=== PATIENT | male | born 1950 | race Caucasian/White ===

== ENCOUNTER 2017-06-16 11:49 | Day surgery (SDC) | payer MEDICARE ==
[2017-06-16] MEDS ORDERED: LIDOCAINE 4% INJ 5 ML AMP NEB (12:30)
[2017-06-16] MEDS ORDERED: LIDOCAINE VISCOUS 2% SOLN 15ML UDC As Ordered (12:48)
== END 2017-06-16 13:40 | disposition home or self-care (01) ==
LOC: M OPP 11:49
DX: Z12.11 Encounter for screening for malignant neoplasm of colon (principal); Z86.010 Personal history of colon polyps; Z80.0 Family history of malignant neoplasm of digestive organs; D12.0 Benign neoplasm of cecum; D12.5 Benign neoplasm of sigmoid colon; K64.0 First degree hemorrhoids; K57.30 Diverticulosis of large intestine without perforation or abscess without bleeding; R12 Heartburn; K22.8 Other specified diseases of esophagus; K44.9 Diaphragmatic hernia without obstruction or gangrene; I10 Essential (primary) hypertension; E78.5 Hyperlipidemia, unspecified; K21.9 Gastro-esophageal reflux disease without esophagitis; K82.9 Disease of gallbladder, unspecified; Z86.79 Personal history of other diseases of the circulatory system; Z88.0 Allergy status to penicillin; Z79.82 Long term (current) use of aspirin; Z79.899 Other long term (current) drug therapy; Z80.1 Family history of malignant neoplasm of trachea, bronchus and lung; Z83.71 Family history of colonic polyps
CPT/HCPCS: 45380

== ENCOUNTER 2017-11-16 09:57 | Emergency (ER) | payer MEDICARE ==
[2017-11-16 10:36] LABS: BASO % 0.4 % (0.0-1.0); EOS # 0.1 10^3/uL (0.0-0.50); EOS % 0.9 % (0.0-3.0); HEMATOCRIT 41.7 % (42.0-52.0); HEMOGLOBIN 14.5 g/dl (13.5-17.5); IMMATURE GRANULOCYTE % 0.1 % (0-3.0); LYMPH # 2.1 10^3/uL (1.5-4.5); LYMPH % 30.5 % (24.0-44.0); MEAN CORPUSCULAR HEMOGLOBIN 31.3 pg (27.0-33.0); MEAN CORPUSCULAR HGB CONC 34.8 g/dl (32.0-36.5); MEAN CORPUSCULAR VOLUME 90.1 fl (80.0-96.0); MONO # 0.4 10^3/uL (0.0-0.8); NEUTROPHILS # 4.2 10^3/uL (1.8-7.7); NEUTROPHILS % 62.1 % (36.0-66.0); PLATELET COUNT, AUTOMATED 242 10^3/uL (150-450); RED BLOOD COUNT 4.63 10^6/uL (4.30-6.10); WHITE BLOOD COUNT 6.8 10^3/uL (4.0-10.0)
[2017-11-16 10:59] LABS: INR 0.95; PROTHROMBIN TIME 12.8 SECONDS (12.1-14.4)
[2017-11-16 11:15] LABS: ALBUMIN 3.8 GM/DL (3.2-5.2); ALKALINE PHOSPHATASE 116 U/L (45-117); ALT/SGPT 25 U/L (12-78); ANION GAP 9 MEQ/L (8-16); AST/SGOT 15 U/L (7-37); BILIRUBIN,DIRECT 0.1 MG/DL (0.0-0.2); BILIRUBIN,TOTAL 0.5 MG/DL (0.2-1.0); BLOOD UREA NITROGEN 22 MG/DL (7-18); CALCIUM LEVEL 8.8 MG/DL (8.8-10.2); CARBON DIOXIDE LEVEL 23 MEQ/L (21-32); CHLORIDE LEVEL 107 MEQ/L (98-107); CPK CREATINE PHOSPHOKINASE 195 U/L (39-308); CREATININE FOR GFR 0.93 MG/DL (0.70-1.30); FREE T4 1.02 NG/DL (0.76-1.46); GLOMERULAR FILTRATION RATE > 60.0 (>49); GLUCOSE, FASTING 137 MG/DL (70-100); LIPASE 110 U/L (73-393); MB/CK RELATIVE INDEX 0.87 (< OR =4); NT-PRO BNP 50 PG/ML (<125); POTASSIUM SERUM 3.9 MEQ/L (3.5-5.1); SODIUM LEVEL 139 MEQ/L (136-145); TOTAL PROTEIN 6.8 GM/DL (6.4-8.2); TROPONIN I < 0.02 NG/ML (< 0.10)
[2017-11-16 11:38] LABS: ALBUMIN/GLOBULIN RATIO 0.79 (1.00-1.93)
== END 2017-11-16 12:04 | disposition home or self-care (01) ==
LOC: M ED 09:57
DX: I49.9 Cardiac arrhythmia, unspecified (principal); I10 Essential (primary) hypertension; E78.5 Hyperlipidemia, unspecified; Z88.0 Allergy status to penicillin; Z88.1 Allergy status to other antibiotic agents; Z79.899 Other long term (current) drug therapy; Z79.82 Long term (current) use of aspirin
CPT/HCPCS: 71045

== ENCOUNTER → 2020-04-18 | Outpatient (CLI) | payer MEDICARE ==
[~2020-04-18] MED LIST: AMBI5TAB PO; ASPI81TA86 PO; ATEN25TA PO; ATOR1TAB19 PO; AVAP150T31 PO; CHLO125TA PO; DIOV80TA OR; HYDR25TA6 OR; IRBE150T7 PO
== END ==
LOC: M LABSMTC 13:59
PROVIDERS: ATTEND Family Medicine
DX: Z20.822 Contact with and (suspected) exposure to COVID-19 (principal)
CPT/HCPCS: C9803; U0003

== ENCOUNTER 2021-04-30 13:24 | Observation (INO) | payer MEDICARE ==
[2021-04-30] MEDS ORDERED: ONDANSETRON 4MG/2ML VIAL IV ONE (13:40)
[2021-04-30 14:07] LABS: BASO % 0.3 % (0.0-1.0); EOS % 0.2 % (0.0-3.0); HEMATOCRIT 44.2 % (42.0-52.0); HEMOGLOBIN 15.1 g/dl (13.5-17.5); LYMPH # 1.5 10^3/uL (1.5-5.0); LYMPH % 16.7 % (24.0-44.0); MEAN CORPUSCULAR HEMOGLOBIN 31.3 pg (27.0-33.0); MEAN CORPUSCULAR HGB CONC 34.2 g/dl (32.0-36.5); MEAN CORPUSCULAR VOLUME 91.5 fl (80.0-96.0); MONO # 0.4 10^3/uL (0.0-0.8); NEUTROPHILS # 6.9 10^3/uL (1.5-8.5); NEUTROPHILS % 78.3 % (36.0-66.0); PLATELET COUNT, AUTOMATED 218 10^3/uL (150-450); RED BLOOD COUNT 4.83 10^6/uL (4.30-6.10); WHITE BLOOD COUNT 8.8 10^3/uL (4.0-10.0)
[2021-04-30 14:46] LABS: BLOOD UREA NITROGEN 20 MG/DL (7-18); CALCIUM LEVEL 8.8 MG/DL (8.8-10.2); CARBON DIOXIDE LEVEL 21 MEQ/L (21-32); CHLORIDE LEVEL 106 MEQ/L (98-107); CREATININE FOR GFR 1.09 MG/DL (0.70-1.30); GLOMERULAR FILTRATION RATE > 60.0 (>49); GLUCOSE, FASTING 156 MG/DL (70-100); POTASSIUM SERUM 6.4 MEQ/L (3.5-5.1); SODIUM LEVEL 134 MEQ/L (136-145)
[2021-04-30] MEDS ORDERED: MECLIZINE 25 MG TABLET PO ONE (15:00)
[2021-04-30] MEDS ORDERED: diazePAM 10MG/2ML SYRINGE (J3360 PER 5MG) IV ONE ×2 (15:00→15:45)
[2021-04-30 17:47] LABS: BLOOD UREA NITROGEN 19 MG/DL (7-18); CALCIUM LEVEL 8.9 MG/DL (8.8-10.2); CARBON DIOXIDE LEVEL 26 MEQ/L (21-32); CHLORIDE LEVEL 107 MEQ/L (98-107); CREATININE FOR GFR 0.94 MG/DL (0.70-1.30); GLOMERULAR FILTRATION RATE > 60.0 (>49); GLUCOSE, FASTING 123 MG/DL (70-100); POTASSIUM SERUM 3.9 MEQ/L (3.5-5.1); SODIUM LEVEL 139 MEQ/L (136-145)
[2021-04-30] MEDS ORDERED: diazePAM 2 MG TAB PO ONE (17:50)
[2021-04-30] MEDS ORDERED: ACETAMINOPHEN TAB 650MG DOSE (2X325MG) PO PRN (18:35)
[2021-04-30 19:13] LABS: MAGNESIUM LEVEL 2.1 MG/DL (1.8-2.4)
[2021-04-30] MEDS ORDERED: diphenhydrAMINE 50MG/ML VIAL (J1200) IV ONE (19:25)
[2021-04-30] MEDS ORDERED: PROCHLORPERAZINE 10MG/2ML VIAL (J0780 PER 1) IV ONE (19:30)
[2021-04-30] MEDS ORDERED: **hydrALAZINE HCL** 25 MG TAB PO ONE (19:45)
[2021-04-30] MEDS ORDERED: DRAM50TA9 PO (21:14)
[2021-04-30] MEDS ORDERED: HOME MED LIST COMPLETE! XX SCH (21:15)
[2021-04-30 21:30] LABS: RSV AMPLIFICATION NEGATIVE (NEGATIVE)
[2021-04-30 23:00] VITALS: BP 129/67
[2021-05-01] VITALS (8 sets, daily range): BP systolic 105–150; BP diastolic 54–90
[2021-05-01] MEDS: MECLIZINE 25 MG TABLET PO PRN ×2 (01:41→09:04)
[2021-05-01 07:27] LABS: BLOOD UREA NITROGEN 18 MG/DL (7-18); CALCIUM LEVEL 8.6 MG/DL (8.8-10.2); CARBON DIOXIDE LEVEL 29 MEQ/L (21-32); CHLORIDE LEVEL 107 MEQ/L (98-107); CREATININE FOR GFR 0.89 MG/DL (0.70-1.30); GLOMERULAR FILTRATION RATE > 60.0 (>49); GLUCOSE, FASTING 89 MG/DL (70-100); POTASSIUM SERUM 3.4 MEQ/L (3.5-5.1); SODIUM LEVEL 142 MEQ/L (136-145)
[2021-05-01] MEDS: IRBESARTAN 150MG TAB PO SCH (11:04)
[2021-05-01] MEDS: predniSONE 20 MG TAB PO SCH (13:15)
[2021-05-01] MEDS: ACETAMINOPHEN TAB 650MG DOSE (2X325MG) PO PRN ×2 (13:25→19:24)
[2021-05-01] MEDS: MECLIZINE 25 MG TABLET PO SCH ×2 (13:27→17:37)
[2021-05-01] MEDS: ONDANSETRON 4MG/2ML VIAL IV PRN (19:24)
[2021-05-02] MEDS: MECLIZINE 25 MG TABLET PO SCH ×4 (00:59→18:37)
[2021-05-02 05:57] VITALS: BP 146/82
[2021-05-02] MEDS: ONDANSETRON 4MG/2ML VIAL IV PRN (06:28)
[2021-05-02] MEDS ORDERED: POTASSIUM CHLORIDE 10MEQ SR TABLET PO ONE (07:05)
[2021-05-02] MEDS ORDERED: FIORICET TAB PO ONE (08:50)
[2021-05-02] MEDS ORDERED: ASPIRIN 325 MG TAB PO ONE (08:50)
[2021-05-02] MEDS ORDERED: ONDANSETRON 4 MG ORAL DISINTEGRATING TAB PO PRN (09:05)
[2021-05-02] MEDS: predniSONE 20 MG TAB PO SCH (10:13)
[2021-05-02] MEDS: IRBESARTAN 150MG TAB PO SCH (11:26)
[2021-05-02 14:00] VITALS: BP 144/101
[2021-05-02] MEDS ORDERED: DOCUSATE SODIUM 100MG CAPSULE PO PRN (14:05)
[2021-05-02 16:08] LABS: Lyme Disease IgG/IgM Antibodie <0.91 ISR (0.00-0.90); Lyme Disease IgM Ab Quantitati <0.80 index (0.00-0.79)
[2021-05-02 16:08] LABS: MB/CK RELATIVE INDEX 0.68 (< OR =4)
[2021-05-02 16:09] LABS: CALCIUM LEVEL 9.2 MG/DL (8.8-10.2); CREATININE FOR GFR 1.28 MG/DL (0.70-1.30); GLOMERULAR FILTRATION RATE 59.3 (>49); MAGNESIUM LEVEL 2.2 MG/DL (1.8-2.4)
[2021-05-02 18:40] VITALS: BP 118/81
[2021-05-02 21:00] VITALS: BP 124/77
[2021-05-03] MEDS: MECLIZINE 25 MG TABLET PO SCH ×3 (00:40→11:25)
[2021-05-03 06:00] VITALS: BP 140/70
[2021-05-03 08:10] VITALS: BP 142/87
[2021-05-03] MEDS: predniSONE 20 MG TAB PO SCH (09:40)
[2021-05-03 09:42] VITALS: BP 139/79
[2021-05-03] MEDS: IRBESARTAN 150MG TAB PO SCH (09:42)
[2021-05-03] MEDS ORDERED: MECL-86 PO (09:46)
[2021-05-03] MEDS ORDERED: ONDA4TAB6 PO (09:46)
[2021-05-03] MEDS ORDERED: PRED10TA2 PO (09:46)
== END 2021-05-03 11:53 | disposition home or self-care (01) ==
LOC: EDBD 13:24 → EDSEX 13:24 → M ED 13:24 → M ED INP 13:25 → M MSPAV 23:12
PROVIDERS: ADMIT Internal Medicine; ATTEND Internal Medicine
DX: H81.23 Vestibular neuronitis, bilateral (principal); I10 Essential (primary) hypertension; E78.5 Hyperlipidemia, unspecified; G43.909 Migraine, unspecified, not intractable, without status migrainosus; I47.9 Paroxysmal tachycardia, unspecified; Z79.899 Other long term (current) drug therapy; Z79.52 Long term (current) use of systemic steroids; Z88.0 Allergy status to penicillin
CPT/HCPCS: 36415; 70450; 70551; 80048; 82550; 82553; 83735; 84484; 85025; 86617; 87631; 93005; 96374; 96375; 96376; 97112; 97161; 97530; 99285; G0378; J0780; J1200; J2405; J3360; J7512; Q0162

== ENCOUNTER 2021-10-20 01:18 | Emergency (ER) | payer MEDICARE ==
[~2021-10-20] VITALS: Ht 172.7 cm; Wt 96.5 kg
[~2021-10-20 01:18] MED LIST changes: +DRAM50TA9 PO; +MECL-86 PO; +ONDA4TAB6 PO; +PRED10TA2 PO
[2021-10-20] MEDS ORDERED: KETOROLAC 30 MG/ML 1ML VIAL IV ONE (02:35)
[2021-10-20 02:53] LABS: BASO # 0.1 10^3/uL (0.0-0.2); BASO % 0.7 % (0.0-1.0); EOS # 0.1 10^3/uL (0.0-0.5); HEMOGLOBIN 12.6 g/dl (13.5-17.5); LYMPH # 1.8 10^3/uL (1.5-5.0); LYMPH % 25.1 % (24.0-44.0); MEAN CORPUSCULAR HEMOGLOBIN 30.7 pg (27.0-33.0); MEAN CORPUSCULAR HGB CONC 33.2 g/dl (32.0-36.5); MEAN CORPUSCULAR VOLUME 92.7 fl (80.0-96.0); MONO # 0.6 10^3/uL (0.0-0.8); MONO % 7.5 % (2.0-8.0); NEUTROPHILS # 4.8 10^3/uL (1.5-8.5); NEUTROPHILS % 65.6 % (36.0-66.0); PLATELET COUNT, AUTOMATED 208 10^3/uL (150-450); WHITE BLOOD COUNT 7.3 10^3/uL (4.0-10.0)
[2021-10-20 03:11] LABS: ALT/SGPT 24 U/L (12-78); BILIRUBIN,DIRECT 0.1 MG/DL (0.0-0.2); BILIRUBIN,TOTAL 0.4 MG/DL (0.2-1.0); BLOOD UREA NITROGEN 31 MG/DL (7-18); CALCIUM LEVEL 8.6 MG/DL (8.8-10.2); CARBON DIOXIDE LEVEL 24 MEQ/L (21-32); CHLORIDE LEVEL 108 MEQ/L (98-107); CREATININE FOR GFR 1.18 MG/DL (0.70-1.30); GLOMERULAR FILTRATION RATE > 60.0 (>42); GLUCOSE, FASTING 131 MG/DL (70-100); LIPASE 85 U/L (73-393); POTASSIUM SERUM 4.2 MEQ/L (3.5-5.1); SODIUM LEVEL 137 MEQ/L (136-145); TOTAL PROTEIN 6.9 GM/DL (6.4-8.2)
[2021-10-20 04:14] LABS: SQUAMOUS EPITHELIAL CELL URINE SMALL AMOUNT /hpf (SMALL AMT); WBC, URINE 0-1 /hpf (0-3)
[2021-10-20 04:15] LABS: BACTERIA, URINE NONE SEEN; HYALINE CAST, URINE NONE SEEN /lpf (0-1)
[2021-10-20] MEDS ORDERED: MORPHINE 4 MG/ML 1ML VIAL/SYRINGE IV ONE (07:10)
[2021-10-20] MEDS ORDERED: OXYCODONE/APAP 5MG/325MG(HOME DOSE PACK) PO ONE (07:10)
[2021-10-20] MEDS ORDERED: PERC5TAB12 PO (07:12)
[2021-10-20] MEDS ORDERED: FLOM0.4C39 PO (07:12)
[2021-10-20 07:43] VITALS: BP 156/86
== END 2021-10-20 07:45 | disposition home or self-care (01) ==
LOC: M ED 01:18
DX: N21.1 Calculus in urethra (principal); N13.1 Hydronephrosis with ureteral stricture, not elsewhere classified; I10 Essential (primary) hypertension; I47.1 Supraventricular tachycardia; I25.10 Atherosclerotic heart disease of native coronary artery without angina pectoris; Z98.61 Coronary angioplasty status; H91.90 Unspecified hearing loss, unspecified ear; N40.0 Benign prostatic hyperplasia without lower urinary tract symptoms; Z79.899 Other long term (current) drug therapy; Z88.0 Allergy status to penicillin
CPT/HCPCS: 74176; 80048; 80076; 81000; 83690; 85025; 96374; 96375; 99284; J1885; J2270

== ENCOUNTER → 2021-10-23 | Outpatient (CLI) | payer MEDICARE ==
[~2021-10-23] MED LIST changes: +FLOM0.4C39 PO; +PERC5TAB12 PO
[2021-10-23 14:09] LABS: APPEARANCE, URINE MANUAL CLEAR (CLEAR); COLOR, URINE MANUAL YELLOW (YELLOW)
[2021-10-23 14:10] LABS: PH,URINE MAN 5.5 UNITS (5.0 - 7.0); SPECIFIC GRAVITY,URINE MANUAL 1.015 (1.002-1.035)
[2021-10-23 14:11] LABS: BILIRUBIN, URINE MANUAL NEGATIVE (NEGATIVE); BLOOD URINE MANUAL POSITIVE (NEGATIVE); GLUCOSE, URINE (UA) MANUAL NEGATIVE (NEGATIVE); KETONE, URINE MANUAL NEGATIVE (NEGATIVE); LEUKOCYTE ESTERASE, URINE MAN NEGATIVE (NEGATIVE); NITRITE, URINE MANUAL NEGATIVE (NEGATIVE); PROTEIN, URINE MANUAL NEGATIVE (NEGATIVE); UROBILINOGEN, URINE MANUAL NORMAL (NORMAL)
[2021-10-23 14:40] LABS: BACTERIA, URINE NONE SEEN; HYALINE CAST, URINE NONE SEEN /lpf (0-1); MUCUS, URINE SMALL AMOUNT (NEGATIVE); RBC, URINE 30-40 /hpf (0-3); SQUAMOUS EPITHELIAL CELL URINE SMALL AMOUNT /hpf (SMALL AMT)
== END ==
LOC: M PLAIMG 08:51
PROVIDERS: ATTEND Physician Assistant
DX: Z01.818 Encounter for other preprocedural examination (principal); N20.1 Calculus of ureter

== ENCOUNTER → 2021-11-04 | Outpatient (CLI) | payer MEDICARE | LOC: M RAD 13:00 | PROVIDERS: ATTEND Physician Assistant | DX: N20.0 Calculus of kidney (principal); N28.1 Cyst of kidney, acquired; N18.9 Chronic kidney disease, unspecified ==

== ENCOUNTER → 2021-11-30 | Outpatient (REF) | payer MEDICARE | LOC: M WUC 12:42 | PROVIDERS: ATTEND Physician Assistant | DX: U07.1 COVID-19 (principal); J06.9 Acute upper respiratory infection, unspecified ==

== ENCOUNTER → 2022-05-25 | Outpatient (CLI) | payer MEDICARE | LOC: M PLALAB 11:11 → M PLAIMG 11:11 | PROVIDERS: ATTEND Urology | DX: N20.0 Calculus of kidney (principal); R14.0 Abdominal distension (gaseous) ==

== ENCOUNTER 2022-11-23 07:13 | Day surgery (SDC) | payer MEDICARE ==
[~2022-11-23] VITALS: Ht 172.7 cm; Wt 95.2 kg
[~2022-11-23 07:13] MED LIST changes: +ALEV220T22 PO; +NS 1,000 ML IV ONE; +ZOLP10TA2 PO
[2022-11-23 08:25] VITALS: BP 161/91; TEMP 97.6; O2SAT 99
== END 2022-11-23 08:35 | disposition home or self-care (01) ==
LOC: M OPP 07:13
PROVIDERS: ATTEND Internal Medicine Gastroenterology
DX: Z86.010 Personal history of colon polyps (principal); K64.0 First degree hemorrhoids; Z79.811 Long term (current) use of aromatase inhibitors; Z79.83 Long term (current) use of bisphosphonates; Z79.899 Other long term (current) drug therapy; Z88.0 Allergy status to penicillin; Z88.1 Allergy status to other antibiotic agents

== ENCOUNTER → 2023-09-07 | Outpatient (CLI) | payer MEDICARE ==
[~2023-09-07] MED LIST changes: +IRBE150T27 PO; -IRBE150T7 PO; -NS 1,000 ML IV ONE; +ONDA-282 PO; -ONDA4TAB6 PO
== END ==
LOC: M PLAIMG 16:15
PROVIDERS: ATTEND Urology
DX: N20.0 Calculus of kidney (principal)

== ENCOUNTER → 2023-10-07 | Outpatient (CLI) | payer MEDICARE | LOC: M RAD 08:36 | PROVIDERS: ATTEND Urology | DX: N20.0 Calculus of kidney (principal); Z90.49 Acquired absence of other specified parts of digestive tract; J92.9 Pleural plaque without asbestos; N21.0 Calculus in bladder ==

== ENCOUNTER → 2023-11-04 | Outpatient (CLI) | payer MEDICARE ==
[2023-11-04 10:33] LABS: HEMATOCRIT 43.1 % (42.0-52.0); HEMOGLOBIN 14.9 g/dl (13.5-17.5); MEAN CORPUSCULAR HEMOGLOBIN 32.2 pg (27.0-33.0); MEAN CORPUSCULAR HGB CONC 34.6 g/dl (32.0-36.5); MEAN CORPUSCULAR VOLUME 93.1 fl (80.0-96.0); PLATELET COUNT, AUTOMATED 218 10^3/uL (150-450); RED BLOOD COUNT 4.63 10^6/uL (4.30-6.10); WHITE BLOOD COUNT 6.5 10^3/uL (4.0-10.0)
[2023-11-04 10:38] LABS: BLOOD UREA NITROGEN 18 MG/DL (9-23); CALCIUM LEVEL 9.2 MG/DL (8.3-10.6); CARBON DIOXIDE LEVEL 28 MMOL/L (20-31); CHLORIDE LEVEL 108 MMOL/L (98-107); CREATININE FOR GFR 0.87 MG/DL (0.70-1.30); GLOMERULAR FILTRATION RATE > 60.0 (>42); GLUCOSE, FASTING 97 MG/DL (74-106); POTASSIUM SERUM 4.6 MMOL/L (3.5-5.1); SODIUM LEVEL 140 MMOL/L (136-145)
== END ==
LOC: M PLAIMG 07:59
PROVIDERS: ATTEND Urology
DX: Z01.818 Encounter for other preprocedural examination (principal); N21.0 Calculus in bladder; N39.0 Urinary tract infection, site not specified

== ENCOUNTER → 2023-11-15 | Outpatient (REF) | payer MEDICARE | LOC: M SMT 15:08 | PROVIDERS: ATTEND Urology | DX: Z01.818 Encounter for other preprocedural examination (principal); N21.0 Calculus in bladder; N39.0 Urinary tract infection, site not specified ==

== ENCOUNTER 2023-11-24 07:21 | Day surgery (SDC) | payer MEDICARE ==
[~2023-11-24] VITALS: Ht 175.3 cm; Wt 93.6 kg
[2023-11-24] MEDS: LR 1,000 ML IV SCH (08:15)
[2023-11-24] MEDS ORDERED: LIDOCAINE 2% 100MG/5ML SDV (FOR ANES.) As Ordered ONE (08:21)
[2023-11-24] MEDS ORDERED: propofoL 200 MG/20 ML VIAL As Ordered ONE (08:21)
[2023-11-24] MEDS ORDERED: ONDANSETRON 4MG 2ML VIAL As Ordered ONE (08:22)
[2023-11-24] MEDS ORDERED: ceFAZolin SOD 2 GM in IV 1 EA IV ONE (09:00)
[2023-11-24] MEDS ORDERED: oxyCODONE 5MG TAB PO PRN (10:15)
[2023-11-24] MEDS ORDERED: fentaNYL 100 MCG/2 ML INJECTION IV PRN (10:15)
[2023-11-24] MEDS ORDERED: MORPHINE 2 MG/ML 1ML VIAL IV PRN (10:15)
[2023-11-24] MEDS: ONDANSETRON 4MG 2ML VIAL IV PRN (10:25)
[2023-11-24] MEDS ORDERED: CIPR-249 PO (10:39)
[2023-11-24] MEDS ORDERED: OXYB5TAB14 PO (10:39)
[2023-11-24] MEDS ORDERED: FLOM0.4C39 PO (10:39)
[2023-11-24] MEDS ORDERED: oxyBUTYnin 5 MG TAB PO PRN (11:15)
[2023-11-24] MEDS ORDERED: ACETAMINOPHEN TAB 650MG DOSE (2X325MG) PO PRN (11:15)
[2023-11-24 12:20] VITALS: BP 166/83; TEMP 97.6; O2SAT 99
== END 2023-11-24 13:15 | disposition home or self-care (01) ==
LOC: M SDC 07:21
PROVIDERS: ATTEND Urology
DX: N21.0 Calculus in bladder (principal); N35.919 Unspecified urethral stricture, male, unspecified site; N40.1 Benign prostatic hyperplasia with lower urinary tract symptoms; N13.8 Other obstructive and reflux uropathy; I10 Essential (primary) hypertension; K44.9 Diaphragmatic hernia without obstruction or gangrene; Z79.899 Other long term (current) drug therapy; Z88.0 Allergy status to penicillin; Z90.89 Acquired absence of other organs
CPT/HCPCS: 52318; 82365; A4215; C1769; J2405

== ENCOUNTER → 2024-04-11 | Outpatient (CLI) | payer MEDICARE ==
[~2024-04-11] MED LIST changes: +CIPR-249 PO; +OXYB5TAB14 PO
== END ==
LOC: M CARPUL 15:07
PROVIDERS: ATTEND Physician Assistant
DX: Z01.818 Encounter for other preprocedural examination (principal); N21.0 Calculus in bladder; I70.0 Atherosclerosis of aorta; I36.1 Nonrheumatic tricuspid (valve) insufficiency; I37.1 Nonrheumatic pulmonary valve insufficiency; I50.30 Unspecified diastolic (congestive) heart failure

== ENCOUNTER → 2024-05-15 | Outpatient (CLI) | payer MEDICARE ==
[2024-05-15 11:58] LABS: BLOOD UREA NITROGEN 24 MG/DL (9-23); CALCIUM LEVEL 9.2 MG/DL (8.3-10.6); CARBON DIOXIDE LEVEL 26 MMOL/L (20-31); CHLORIDE LEVEL 105 MMOL/L (98-107); CREATININE FOR GFR 0.94 MG/DL (0.70-1.30); GLOMERULAR FILTRATION RATE > 60.0 (>42); GLUCOSE, FASTING 98 MG/DL (74-106); POTASSIUM SERUM 4.4 MMOL/L (3.5-5.1); SODIUM LEVEL 139 MMOL/L (136-145)
== END ==
LOC: M LAB 10:46
PROVIDERS: ATTEND Physician Assistant
DX: I11.0 Hypertensive heart disease with heart failure (principal); I50.30 Unspecified diastolic (congestive) heart failure

== ENCOUNTER → 2025-02-09 | Outpatient (CLI) | payer MEDICARE ==
[~2025-02-09] MED LIST changes: -AMBI5TAB PO; -FLOM0.4C39 PO; +TAMS-18 PO; +ZOLP-532 PO; +ZOLP10TA11 PO; -ZOLP10TA2 PO
== END ==
LOC: M CARPUL 14:13
PROVIDERS: ATTEND Physician Assistant
DX: I50.32 Chronic diastolic (congestive) heart failure (principal)